=== PATIENT | male | born 1965 | race Caucasian/White ===

== ENCOUNTER 2021-03-05 11:36 | Emergency (ER) | payer OTHER ==
[~2021-03-05] VITALS: Ht 182.9 cm; Wt 89.0 kg
[2021-03-05 11:53] VITALS: BP 134/90
[2021-03-05 14:16] LABS: BASOPHILS # (AUTO) 0.1 X10'3 (0-0.2); BASOPHILS % (AUTO) 0.8 % (0-1); EOSINOPHILS # (AUTO) 0.1 X10'3 (0-0.9); EOSINOPHILS % (AUTO) 1.7 % (0-6); HEMATOCRIT 45.7 % (42.0-52.0); HEMOGLOBIN 15.9 g/dl (14.0-17.9); LYMPHOCYTES # (AUTO) 2.3 X10'3 (1.1-4.8); LYMPHOCYTES % (AUTO) 33.1 % (21-51); MEAN CORPUSCULAR HEMOGLOBIN 32.1 PG (27.0-31.0); MEAN CORPUSCULAR HGB CONC 34.8 g/dL (33.0-36.5); MEAN CORPUSCULAR VOLUME 92.1 FL (78-98); MONOCYTES # (AUTO) 0.8 X10'3 (0-0.9); MONOCYTES % (AUTO) 11.9 % (2-12); NEUTROPHILS # (AUTO) 3.7 X10'3 (1.8-7.7); NEUTROPHILS % (AUTO) 52.5 % (42-75); PLATELET COUNT 200 X10'3 (140-440); RED BLOOD COUNT 4.96 X10'6 (4.70-6.10); RED CELL DISTRIBUTION WIDTH 12.8 % (11.5-14.5)
[2021-03-05 14:26] LABS: ALANINE AMINOTRANSFERASE 66 U/L (12-78); ALBUMIN 4.1 G/DL (3.4-5.0); ALBUMIN/GLOBULIN RATIO 1.1 (1.1-1.5); ALKALINE PHOSPHATASE 91 IU/L (46-116); ANION GAP 10 (8-16); ASPARTATE AMINO TRANSFERASE 36 U/L (10-37); BILIRUBIN,TOTAL 0.8 MG/DL (0.1-1.0); BLOOD UREA NITROGEN 20 MG/DL (7-18); BUN/CREATININE RATIO 15.3 (5.4-32.0); CALCIUM 9.5 MG/DL (8.5-10.1); CHLORIDE 104 MMOL/L (99-107); CREATININE 1.31 MG/DL (0.60-1.10); GLUCOSE 106 MG/DL (70-104); POTASSIUM 4.3 MMOL/L (3.5-5.1); SODIUM 139 MMOL/L (135-145); TOTAL CARBON DIOXIDE 24.6 MMOL/L (24-32); TOTAL PROTEIN 7.9 G/DL (6.4-8.2); eGFR 57 ML/MIN
[2021-03-05] MEDS ORDERED: morphine 2 MG/ML inj. syringe IV ONE ×2 (15:20→18:15)
[2021-03-05] MEDS ORDERED: ondansetron/PF 4mg/2ml inj IV ONE ×2 (15:20→18:15)
[2021-03-05] MEDS ORDERED: LORazepam 2 mg/ml vial IV ONE ×2 (15:50)
[2021-03-05] MEDS ORDERED: HYDR-3965 PO (18:38)
[2021-03-06] MEDS ORDERED: GADOTERATE MEGLUMINE 7.5 MMOL/15 ML VIAL IV ONE (14:04)
== END 2021-03-05 18:50 | disposition home or self-care (01) ==
LOC: ER 11:37
DX: M54.50 Low back pain, unspecified (principal); R20.0 Anesthesia of skin; K59.00 Constipation, unspecified; R26.89 Other abnormalities of gait and mobility; Z79.899 Other long term (current) drug therapy
CPT/HCPCS: 36415; 72131; 72157; 72158; 72197; 80053; 85025; 96374; 96375; 96376; 99284; J2270; J2405; A9575

== ENCOUNTER 2022-08-28 11:19 | Emergency (ER) | payer BC, OTHER ==
[~2022-08-28] VITALS: Ht 185.4 cm; Wt 100.0 kg
--- NOTE | 2022-08-28 11:42 | NUR ---
EKG COMPLETED. IVS BEING OBTAINED AT THIS TIME.
--- NOTE | 2022-08-28 11:49 | NUR ---
PT TAKEN TO CT.
--- NOTE | 2022-08-28 12:01 | NUR ---
PT TAKEN TO XRAY
[2022-08-28 12:05] LABS: BASOPHILS % (AUTO) 0.5 % (0-1); EOSINOPHILS # (AUTO) 0.1 X10'3 (0-0.9); EOSINOPHILS % (AUTO) 1.5 % (0-6); HEMATOCRIT 44.4 % (42.0-52.0); HEMOGLOBIN 15.1 g/dl (14.0-17.9); LYMPHOCYTES # (AUTO) 1.1 X10'3 (1.1-4.8); LYMPHOCYTES % (AUTO) 15.1 % (21-51); MEAN CORPUSCULAR HEMOGLOBIN 30.7 PG (27.0-31.0); MEAN CORPUSCULAR HGB CONC 33.9 g/dL (33.0-36.5); MEAN CORPUSCULAR VOLUME 90.6 FL (78-98); MEAN PLATELET VOLUME 6.3 FL (7.4-10.4); MONOCYTES # (AUTO) 0.8 X10'3 (0-0.9); MONOCYTES % (AUTO) 10.3 % (2-12); NEUTROPHILS # (AUTO) 5.3 X10'3 (1.8-7.7); NEUTROPHILS % (AUTO) 72.6 % (42-75); PLATELET COUNT 231 X10'3 (140-440); RED CELL DISTRIBUTION WIDTH 14.9 % (11.5-14.5); WHITE BLOOD COUNT 7.3 X10'3 (4.5-11.0)
[2022-08-28 12:11] LABS: APTT 28 SECONDS (22-32)
[2022-08-28 12:15] LABS: ALANINE AMINOTRANSFERASE 24 U/L (12-78); ALBUMIN 3.9 G/DL (3.4-5.0); ALBUMIN/GLOBULIN RATIO 0.9 (1.1-1.5); ALKALINE PHOSPHATASE 98 IU/L (46-116); ANION GAP 8 (8-16); ASPARTATE AMINO TRANSFERASE 21 U/L (10-37); BILIRUBIN,TOTAL 0.6 MG/DL (0.1-1.0); BLOOD UREA NITROGEN 13 MG/DL (7-18); BUN/CREATININE RATIO 11.1 (10.0-20.0); CALCIUM 9.6 MG/DL (8.5-10.1); CHLORIDE 102 MMOL/L (99-107); CREATININE 1.17 MG/DL (0.60-1.10); GLUCOSE 106 MG/DL (70-104); POTASSIUM 4.3 MMOL/L (3.5-5.1); SODIUM 136 MMOL/L (135-145); TOTAL CARBON DIOXIDE 25.8 MMOL/L (24-32); TOTAL PROTEIN 8.3 G/DL (6.4-8.2); eGFR 64 ML/MIN
[2022-08-28] MEDS ORDERED: dexamethasone sod phosphate 10mg/ml inj IV STA (12:50)
[2022-08-28 14:06] LABS: ETHANOL < 0.010 GM/DL (0.0-0.010)
[2022-08-28] MEDS ORDERED: DEXA4TAB79 PO (14:31)
--- NOTE | 2022-08-28 15:11 | NUR ---
PER KAYLA PT IS BEING DISCHARGED AND THERE IS NO NEED TO COLLECT URINE.
[2022-08-28 15:12] VITALS: BP 114/85
--- NOTE | 2022-08-28 16:50 | NUR ---
[employer] SALES FROM [facility] FAXED A REQUEST FOR LAB RESULTS FROM 08/28/22 VISIT. LABS FAXED, SPECIFICALLY THE GFR AND CREATININE RESULTS TO [phone]
== END 2022-08-28 15:25 | disposition home or self-care (01) ==
LOC: ER 11:20
DX: R90.0 Intracranial space-occupying lesion found on diagnostic imaging of central nervous system (principal); G89.29 Other chronic pain; M54.9 Dorsalgia, unspecified; F17.200 Nicotine dependence, unspecified, uncomplicated
CPT/HCPCS: 36415; 70450; 71045; 80053; 80320; 82948; 84484; 85025; 85610; 85730; 93005; 96374; 99285; J1100

== ENCOUNTER 2022-10-28 11:25 | Emergency (ER) | payer BC ==
[~2022-10-28] VITALS: Ht 182.9 cm; Wt 86.4 kg
[~2022-10-28 11:25] MED LIST: DEXA4TAB79 PO
[2022-10-28 11:27] VITALS: BP 149/93; PULSE 90; RESP 16; TEMP 98; O2SAT 98
== END 2022-10-28 19:01 | disposition left against medical advice (07) ==
LOC: ER 11:26
DX: R22.41 Localized swelling, mass and lump, right lower limb (principal); Z53.21 Procedure and treatment not carried out due to patient leaving prior to being seen by health care provider
CPT/HCPCS: 99281